=== PATIENT | male | born 1960 | race Caucasian/White ===

== ENCOUNTER 2023-07-03 16:41 | Inpatient (IN) ==
[2023-07-03] MEDS ORDERED: Heparin 5000 UNITS/ML 1 mL VIAL ONE (16:50)
[2023-07-03] MEDS: NS 0.9% 1000 ml BAG 1,000 ML IV ONE (16:51)
[2023-07-03] MEDS: Heparin - STEMI 5,000 UNITS/ML 1 ml VIAL IV ONE (16:51)
[2023-07-03] MEDS ORDERED: Morphine 4 MG/ML VIAL (1 ml) ONE (17:01)
[2023-07-03 17:04] LABS: ABS Eosinophils 0.1 10^3/uL (0.0-0.5); ABS Lymphocytes 1.6 10^3/uL (1.0-4.8); ABS Monocytes 0.8 10^3/uL (0.0-1.1); ABS Neutrophils 14.3 10^3/uL (1.5-7.6); ABS Nucleated RBC 0.02 10^3/ul; Eosinophil % 0.5 %; Hematocrit 44.5 % (38-53); Lymphocyte % 9.6 %; Mean Corpuscular Hemoglobin 32.3 pg (27-33); Mean Corpuscular Hgb Conc 33.6 g/dL (31-36); Mean Corpuscular Volume 96.3 fL (80-97); Mean Platelet Volume 7.9 fL (7.5-11.2); Nucleated Red Blood Cells % 0.1 %/100WBC (0.0-0.8); Platelet Count 253 10^3/uL (150-450); Red Blood Count 4.62 10^6/uL (4.06-5.63); Red Cell Distribution Width 13.2 % (12-17); White Blood Count 16.9 10^3/uL (3.6-10.2)
[2023-07-03] MEDS ORDERED: Heparin 1,000 UNIT/ML 10 ml (10,000 UNITS) CATHLAB/DIALYSIS ONE (17:07)
[2023-07-03] MEDS ORDERED: VERAPAMIL 2.5 MG/ML 2 ML VIAL ** 5 mg/2 ml ONE (17:07)
[2023-07-03] MEDS ORDERED: Lidocaine 1% MPF 5 ML VIAL ONE (17:08)
[2023-07-03] MEDS ORDERED: Heparin 2 UNITS/ML 1000 mls 3,000 ML IV ONE (17:08)
[2023-07-03] MEDS ORDERED: nitroGLYCERIN DRIP 25,000 MCG/250 ML BTL ONE (17:08)
[2023-07-03] MEDS ORDERED: Iohexol 350 (CONTRAST) 200 ML MDV IV ONE (17:08)
[2023-07-03] MEDS ORDERED: Midazolam 5 mg/5 ml VIAL 1 mg/ml 5 ml VIAL (5 mg) ONE (17:09)
[2023-07-03] MEDS ORDERED: fentaNYL 100 mcg/2 ml 50 MCG/ML VIAL ONE (17:10)
[2023-07-03] MEDS: Iodixanol (CONTRAST) 320 MG/ML 100 ML SDV IV ONE (17:15)
[2023-07-03] MEDS ORDERED: Bivalirudin 250 MG VIAL ONE ×2 (17:43→18:37)
[2023-07-03 17:44] LABS: Albumin 4.6 g/dL (3.2-5.2); Albumin/Globulin Ratio 1.6 (1-3); Calcium 9.3 mg/dL (8.6-10.3); Creatinine, Serum 0.95 mg/dL (0.67-1.17); Globulin 2.9 g/dL (2-4); Magnesium 1.9 mg/dL (1.9-2.7); Total Bilirubin 0.4 mg/dL (0.2-1.0); Total Protein 7.5 g/dL (6.4-8.9); eGFR CKD-EPI 91.1 (>60)
[2023-07-03] MEDS ORDERED: Atropine 0.1 MG/ML 10 ml SYR (1 mg) ONE (17:44)
[2023-07-03] MEDS ORDERED: Amiodarone 150 mg IVPREMIX 150 MG/100 ML BAG IV ONE (17:53)
[2023-07-03 18:03] LABS: Potassium 3.8 mmol/L (3.5-5.0)
[2023-07-03] MEDS ORDERED: Eptifibatide IV (Load dose) 2 MG/ML 10 ml VIAL ONE ×2 (18:21→18:34)
[2023-07-03] MEDS ORDERED: DOPamine 800 MG/250 ML IVPREMX 800 MG/250 ML ML CENTR ONE (18:28)
[2023-07-03] MEDS ORDERED: Iohexol 350 (CONTRAST) 100 ML PAK IV ONE (18:57)
[2023-07-03] MEDS ORDERED: Heparin 5000 UNITS/ML 1 mL VIAL IV SCH (20:00)
[2023-07-03 21:08] LABS: ABS Lymphocytes 0.7 10^3/uL (1.0-4.8); ABS Monocytes 0.6 10^3/uL (0.0-1.1); ABS Neutrophils 9.5 10^3/uL (1.5-7.6); Hematocrit 39.9 % (38-53); Hemoglobin 13.6 g/dL (13.2-16.3); Lymphocyte % 6.5 %; Mean Corpuscular Hemoglobin 32.6 pg (27-33); Mean Corpuscular Hgb Conc 34.2 g/dL (31-36); Mean Corpuscular Volume 95.4 fL (80-97); Mean Platelet Volume 7.9 fL (7.5-11.2); Platelet Count 229 10^3/uL (150-450); Red Blood Count 4.18 10^6/uL (4.06-5.63); White Blood Count 10.8 10^3/uL (3.6-10.2)
[2023-07-03] MEDS: Heparin DRIP 25,000 UNITS BAG 25,000 UNITS/250 ML BAG IV SCH (21:18)
[2023-07-03 21:41] LABS: High Sensitivity Troponin 1 Hr > 24000 pg/mL (<20)
[2023-07-03 21:48] LABS: ALT 36 U/L (7-52); AST 60 U/L (13-39); Albumin 4.3 g/dL (3.2-5.2); Albumin/Globulin Ratio 1.7 (1-3); Alkaline Phosphatase 58 U/L (35-149); Anion Gap 6 mmol/L (2-16); Blood Urea Nitrogen 13 mg/dL (6-24); CO2 Carbon Dioxide 24 mmol/L (22-32); Calcium 8.7 mg/dL (8.6-10.3); Chloride 108 mmol/L (101-111); Creatinine, Serum 0.82 mg/dL (0.67-1.17); Globulin 2.6 g/dL (2-4); Glucose 102 mg/dL (70-100); Sodium 138 mmol/L (135-145); Total Bilirubin 0.3 mg/dL (0.2-1.0); Total Protein 6.9 g/dL (6.4-8.9); eGFR CKD-EPI 99.9 (>60)
[2023-07-03] MEDS: NS 0.9% 1000 ml BAG 1,000 ML IV SCH (21:58)
[2023-07-03 22:01] LABS: Activated Partial Thrombo Time 161.8 seconds (26.0-38.0); INR 5.19 (0.83-1.13)
[2023-07-04 04:27] LABS: ABS Lymphocytes 1.3 10^3/uL (1.0-4.8); ABS Monocytes 0.9 10^3/uL (0.0-1.1); ABS Neutrophils 6.9 10^3/uL (1.5-7.6); ABS Nucleated RBC 0.01 10^3/ul; Eosinophil % 0.4 %; Hematocrit 37.1 % (38-53); Hemoglobin 13.2 g/dL (13.2-16.3); Lymphocyte % 14.2 %; Mean Corpuscular Hemoglobin 33.3 pg (27-33); Mean Corpuscular Hgb Conc 35.4 g/dL (31-36); Mean Platelet Volume 8.2 fL (7.5-11.2); Nucleated Red Blood Cells % 0.1 %/100WBC (0.0-0.8); Platelet Count 214 10^3/uL (150-450); Red Blood Count 3.95 10^6/uL (4.06-5.63); White Blood Count 9.2 10^3/uL (3.6-10.2)
[2023-07-04 04:42] LABS: Calcium 8.4 mg/dL (8.6-10.3); Creatinine, Serum 0.84 mg/dL (0.67-1.17); Potassium 3.8 mmol/L (3.5-5.0); eGFR CKD-EPI 99.2 (>60)
[2023-07-04 04:57] LABS: HDL Cholesterol 27.4 mg/dL; Magnesium 1.8 mg/dL (1.9-2.7)
[2023-07-04] MEDS: Magnesium Sulfate IV 1GM/100ML 1 GM/100 ML BAG IV ONE (11:54)
[2023-07-05 04:37] LABS: ABS Basophils 0.1 10^3/uL (0.0-0.1); ABS Monocytes 0.9 10^3/uL (0.0-1.1); ABS Neutrophils 6.8 10^3/uL (1.5-7.6); Eosinophil % 0.5 %; Hematocrit 39.7 % (38-53); Hemoglobin 13.7 g/dL (13.2-16.3); Lymphocyte % 11.3 %; Mean Corpuscular Hemoglobin 32.7 pg (27-33); Mean Corpuscular Hgb Conc 34.5 g/dL (31-36); Mean Corpuscular Volume 94.9 fL (80-97); Mean Platelet Volume 7.7 fL (7.5-11.2); Platelet Count 199 10^3/uL (150-450); Red Blood Count 4.18 10^6/uL (4.06-5.63); Red Cell Distribution Width 13.3 % (12-17); White Blood Count 8.8 10^3/uL (3.6-10.2)
[2023-07-05 04:55] LABS: Calcium 8.3 mg/dL (8.6-10.3); Creatinine, Serum 0.86 mg/dL (0.67-1.17); Magnesium 1.8 mg/dL (1.9-2.7); Potassium 3.9 mmol/L (3.5-5.0); eGFR CKD-EPI 98.5 (>60)
[2023-07-05] MEDS: Magnesium Sulfate IV 1GM/100ML 1 GM/100 ML BAG IV ONE (11:28)
[2023-07-05] MEDS: Potassium Chlor 20 meq TAB.ER PO ONE (13:16)
[2023-07-06 05:53] LABS: ABS Eosinophils 0.1 10^3/uL (0.0-0.5); ABS Lymphocytes 0.9 10^3/uL (1.0-4.8); ABS Neutrophils 5.2 10^3/uL (1.5-7.6); ABS Nucleated RBC 0.02 10^3/ul; Hematocrit 41.9 % (38-53); Hemoglobin 14.4 g/dL (13.2-16.3); Lymphocyte % 12.4 %; Mean Corpuscular Hemoglobin 32.8 pg (27-33); Mean Corpuscular Hgb Conc 34.3 g/dL (31-36); Mean Corpuscular Volume 95.5 fL (80-97); Mean Platelet Volume 7.9 fL (7.5-11.2); Nucleated Red Blood Cells % 0.2 %/100WBC (0.0-0.8); Platelet Count 215 10^3/uL (150-450); Red Blood Count 4.39 10^6/uL (4.06-5.63); Red Cell Distribution Width 12.9 % (12-17); White Blood Count 7.3 10^3/uL (3.6-10.2)
[2023-07-06 07:22] LABS: Calcium 8.7 mg/dL (8.6-10.3); Creatinine, Serum 0.9 mg/dL (0.67-1.17); Potassium 4.3 mmol/L (3.5-5.0); eGFR CKD-EPI 97.2 (>60)
[2023-07-06 07:49] LABS: Magnesium 2.1 mg/dL (1.9-2.7)
[2023-07-06 12:14] VITALS: BP 104/68
== END 2023-07-06 13:15 | disposition home or self-care (01) | DRG 322 ==
LOC: ED 16:41 → EDHOLD 16:54 → AA 17:23 → ICU 19:49